=== PATIENT | female | born 1985 ===

== ENCOUNTER 2017-12-01 18:44 | Emergency (ER) | payer MEDICAID ==
--- NOTE | 2017-12-01 21:37 | C.PDOC ---
History Of Present Illness 32 year old female presents to the ER with a complaint of a left occipital headache for the past week. Patient states she has been taking advil and motrin at home with no relief. She reports having a Hx of mastoiditis for which she followed up with an ENT for. Patient had a series of CTs done and was place on antibiotics with improvement of her mastoiditis. However, patient states her pain now feels similar to her mastoiditis which prompted ER visit. Denies facial swelling, ear swelling, neck swelling, visual c/o, vomiting, dizziness. Time Seen by Provider: 12/01/17 19:23 Chief Complaint (Nursing): Headache History Per: Patient History/Exam Limitations: no limitations Onset/Duration Of Symptoms: Days Current Symptoms Are (Timing): Still Present Preceeding Symptoms: None Associated Symptoms: denies: Photophobia, Blurred Vision, Nausea, Vomiting, Extremity Weakness Recent travel outside of the [place]: No Past Medical History Reviewed: Historical Data, Nursing Documentation, Vital Signs Vital Signs: Last Vital Signs Temp 98.2 F 12/01/17 21:41 Pulse 75 12/01/17 21:41 Resp 18 12/01/17 21:41 BP 100/63 12/01/17 21:41 Pulse Ox 100 12/01/17 22:36 Family History: States: Unknown Family Hx - Social History Hx Alcohol Use: No Hx Substance Use: No Review Of Systems Constitutional: Negative for: Fever, Chills Eyes: Negative for: Vision Change Gastrointestinal: Negative for: Nausea, Vomiting Musculoskeletal: Negative for: Neck Pain Neurological: Positive for: Headache. Negative for: Dizziness Physical Exam - Physical Exam Appears: Non-toxic, No Acute Distress Skin: Normal Color, Warm, Dry Head: Atraumatic, Normacephalic, No Tenderness (Scalp), No Swelling (Facial) Eye(s): bilateral: Normal Inspection, PERRL, EOMI Ear(s): Bilateral: Normal (No periauricular swelling) Nose: Normal Oral Mucosa: Moist Neck: Normal, No Midline Cervical Tenderness, No Paracervical Tenderness, Supple , No Other (Swelling) Lymphatic: No Adenopathy Extremity: Normal ROM Neurological/Psych: Oriented x3, Normal Speech, Normal Motor, Normal Sensation Gait: Steady ED Course And Treatment O2 Sat by Pulse Oximetry: 100 (Room air) Pulse Ox Interpretation: Normal - CT Scan/US CT Head Other Rad Studies (CT/US): Read By Radiologist, Radiology Report Reviewed CT/US Interpretation: EXAM: CT Head Without Intravenous Contrast. CLINICAL HISTORY: 32 years old, female; Signs and symptoms; Other: Headache; Additional info: Left occipital. headache, h/o mastoiditis. TECHNIQUE: Axial computed tomography images of the head/brain without intravenous contrast. All CT scans at. this facility use one or more dose reduction techniques, viz.: automated exposure control; ma/kV. adjustment per patient size (including targeted exams where dose is matched to indication; i.e. head);. or iterative reconstruction technique. Coronal and sagittal reformatted images were created and reviewed. COMPARISON: No relevant prior studies available. FINDINGS: Brain: Unremarkable. No hemorrhage. No significant white matter disease. No edema. Normal. pearl white matter interfaces are present. Ventricles: Unremarkable. No ventriculomegaly. Bones/joints: Unremarkable. No acute fracture. Soft tissues: Unremarkable. Sinuses: Unremarkable as visualized. No acute sinusitis. Mastoid air cells: Minimal fluid in inferior mastoid air cells. Many mastoids appear unremarkable. IMPRESSION: No acute intracranial findings. Minimal left mastoid fluid suggesting mild mastoiditis. Progress Note: Reglan and toradol administered. On reevaluation, patient reports relief from headache, she resting comfortably with no pain at this time. CT head ordered, discussed results with patient; explained to patient that there is no clinical indication for prescribing antibiotics for mild mastoiditis at this time and advised to follow up with her ENT or PMD for further management. Patient states she wishes to have antibiotics just incase she is unable to get an appointment with her PMD or ENT anytime soon; will give patient Rx for augmentin, however, instructed patient to hold off on Rx until she finds out if she can get an appointment with her PMD or ENT and if she does to follow their recommendation instead. Patient understands and agrees with plan. Return precautions discussed Disposition Counseled Patient/Family Regarding: Diagnosis, Need For Followup, Rx Given - Disposition Referrals: Stephen Ann MD [Staff Provider] - Disposition: HOME/ ROUTINE Disposition Time: 21:46 Condition: STABLE Additional Instructions: Please follow up with PMD or Dr Ann tomorrow Take meds as directed for pain Hold Augmentin until seen by DR ann- if unable to be seen and pain continues despite pain killers then may start augmentin Return to ER if worse Prescriptions: Amoxicillin/Clavulanate [Augmentin 500 MG-125 MG] 1 tab PO TID #21 tab Ibuprofen [Motrin] 600 mg PO Q6H #20 tab traMADol [Ultram] 50 mg PO TID #14 tab Instructions: Acute Headache (ED) Forms: [email or web address] (Martiniquais) - Clinical Impression Clinical Impression: Headache, Mastoiditis, chronic - PA / PRESENTATION TEAM MEMBER / Resident Statement MD/DO has reviewed & agrees with the documentation as recorded. - Scribe Statement The provider has reviewed the documentation as recorded by the Scribzina Su All medical record entries made by the Mer were at my direction and personally dictated by me. I have reviewed the chart and agree that the record accurately reflects my personal performance of the history, physical exam, medical decision making, and the department course for this patient. I have also personally directed, reviewed, and agree with the discharge instructions and disposition.
[2017-12-01 21:42] VITALS: BP 100/63; PULSE 75; RESP 18; TEMP 98.2; O2SAT 100
--- NOTE | 2017-12-02 08:27 | CT ---
PROCEDURE: CT HEAD WITHOUT CONTRAST. HISTORY: left occipital headache, h/o mastoiditis COMPARISON: None available. TECHNIQUE: Axial computed tomography images were obtained through the head/brain without intravenous contrast. Radiation dose: Total exam DLP = 803.04 mGy-cm. This CT exam was performed using one or more of the following dose reduction techniques: Automated exposure control, adjustment of the mA and/or kV according to patient size, and/or use of iterative reconstruction technique. FINDINGS: HEMORRHAGE: No intracranial hemorrhage. BRAIN: No mass effect or edema. No atrophy or chronic microvascular ischemic changes. VENTRICLES: Unremarkable. No hydrocephalus. CALVARIUM: Unremarkable. PARANASAL SINUSES: Unremarkable as visualized. No significant inflammatory changes. MASTOID AIR CELLS: Nonspecific left mastoid effusion. No confluence. OTHER FINDINGS: None. IMPRESSION: No intracranial mass, hemorrhage or evidence of acute infarct. Nonspecific left mastoid effusion. Otherwise unremarkable. Preliminary interpretation of this examination was reported by [facility] at 9 p.m. on 12/01/2017. There is concurrence of this report with the preliminary interpretation.
== END 2017-12-01 21:59 | disposition home or self-care (01) ==
LOC: C.ER 18:44
DX: H70.10 Chronic mastoiditis, unspecified ear (principal); R51 Headache
CPT/HCPCS: 70450; 96374; 96375; 99285; J1885; J2765